=== PATIENT | female | born 1945 | race Caucasian/White ===

== ENCOUNTER 2016-12-23 15:33 | Emergency (ER) | payer OTHER ==
[~2016-12-23] VITALS: Ht 154.9 cm; Wt 37.6 kg
[2016-12-23 15:42] VITALS: BP 133/94; PULSE 100; RESP 20; TEMP 98.8; O2SAT 98
--- NOTE | 2016-12-23 15:52 | NUR ---
Pt placed to ER waiting room in stable condition.
[2016-12-23 16:21] LABS: BASOPHILS % (AUTO) 0.5 % (0.0-2.0); EOSINOPHILS # (AUTO) 0.1 K/uL (0.0-0.4); EOSINOPHILS % (AUTO) 1.1 % (0.0-4.0); HEMATOCRIT 39.3 % (36-48); HEMOGLOBIN 13.4 g/dL (12.0-16.0); LYMPHOCYTES # (AUTO) 2.2 K/uL (1.0-5.5); LYMPHOCYTES % (AUTO) 31.3 % (20.5-51.5); MEAN CORPUSCULAR HEMOGLOBIN 30 pg (27-31); MEAN CORPUSCULAR HGB CONC 34 % (32-36); MEAN CORPUSCULAR VOLUME 88 fL (79.0-98.0); MONOCYTES # (AUTO) 0.6 K/uL (0.0-1.0); MONOCYTES % (AUTO) 8.2 % (1.7-9.3); NEUTROPHILS % (AUTO) 58.9 % (40.0-70.0); PLATELET COUNT (AUTO) 310 K/uL (130-430); RED BLOOD CELL COUNT(AUTO) 4.46 MIL/uL (4.2-6.2); WHITE BLOOD COUNT (AUTO) 6.9 K/uL (4.8-10.8)
[2016-12-23 16:48] LABS: ANION GAP 8 (5-15); CALCIUM 9.4 mg/dL (8.4-11.0); CHLORIDE 106 mmol/L (98-107); GLUCOSE 89 mg/dL (70-99); POTASSIUM 4.2 mmol/L (3.5-5.1); SODIUM SERUM 141 mmol/L (136-145); UREA NITROGEN, BLOOD 13 mg/dL (8-21)
--- NOTE | 2016-12-23 17:37 | NUR ---
Pt placed to ER waiting room in stable condition. Urine specimen provided.
--- NOTE | 2016-12-23 17:45 | NUR ---
Pt brought by , A&Ox4, pt states she has Hx of stroke (weakness on R side of the body), today, pt c/o weakness on L side of her body, states she is also worry about her heart, pt states her blood pressure was low yesterday, BP normal at this time, cap refill <3, VSS, Per pt behavior and speech is between her normal . pt denies chest pain at this time.
--- NOTE | 2016-12-23 17:45 | NUR ---
Dr Eric notified to see patient as soon as possible since pt has weakness on L side of body since yesterday and c/o weakness on L arm since yesterday, pt has Hx of slurred speech, VSS at this time.
[2016-12-23 18:02] LABS: BILIRUBIN,URINE NEGATIVE (NEGATIVE); CLARITY/URINE CLEAR (CLEAR); COLOR,URINE YELLOW (YELLOW); GLUCOSE,URINE NEGATIVE (NEGATIVE); KETONES,URINE NEGATIVE (NEGATIVE); LEUKOCYTE ESTERASE ,URINE NEGATIVE (NEGATIVE); NITRITE, URINE NEGATIVE (NEGATIVE); PROTEIN URINE NEGATIVE (NEGATIVE); UROBILINOGEN,URINE 0.2 (0.2-1.0)
[2016-12-23 18:04] LABS: BLOOD, URINE TRACE (NEGATIVE)
--- NOTE | 2016-12-23 18:36 | NUR ---
Pt off the unit for CT
[2016-12-23 18:55] LABS: PROTHROMBIN TIME 10.5 SECS (9.5-12.5)
[2016-12-23 19:05] LABS: ALBUMIN 4.2 g/dL (3.4-4.8); BILIRUBIN,DIRECT 0.1 mg/dL (0.0-0.3); TOTAL BILIRUBIN 0.3 mg/dL (0.0-1.0); TOTAL PROTEIN, SERUM 7.9 g/dL (6.4-8.3)
[2016-12-23 19:16] LABS: BACTERIA,URINE RARE /HPF (None Seen); RBC,URINE 0-3 /HPF (0-3); WBC,URINE 0-3 /HPF (0-3)
[2016-12-23 19:17] LABS: MUCUS,URINE None Seen /LPF (None Seen)
[2016-12-23 19:41] LABS: CHOL/HDL RATIO 2.4 (>4.5)
[2016-12-23 19:49] LABS: CKMB RELATIVE INDEX 0.9 (0.0-2.9); CREATINE KINASE MB 2.1 ng/mL (0-3.6)
--- NOTE | 2016-12-23 20:01 | NUR ---
Pt resting at this time, VSS.
[2016-12-23 20:50] VITALS: BP 122/83; PULSE 80; RESP 18; TEMP 98.4; O2SAT 95
--- NOTE | 2016-12-23 20:50 | NUR ---
Patient given written and verbal discharge instructions and verbalizes understanding. ER MD discussed with patient the results and treatment Patient in stable condition. ID arm band removed. Patient educated on pain management and to follow up with PMD. Pain Scale 0/10. Opportunity for questions provided and answered.
== END 2016-12-23 20:50 | disposition home or self-care (01) ==
LOC: SED 15:33
DX: R53.1 Weakness (principal); G81.91 Hemiplegia, unspecified affecting right dominant side; R51 Headache; Z86.79 Personal history of other diseases of the circulatory system
CPT/HCPCS: 36415; 70450-TC; 71010; 80048; 80061; 80076; 81000-TC; 82550-TC; 82553-TC; 84484; 85025; 85610-TC; 85730-TC; 93005; 99285

== ENCOUNTER 2017-07-07 16:10 | Inpatient (IN) | payer OTHER ==
[~2017-07-07] VITALS: Ht 154.9 cm; Wt 36.7 kg
[2017-07-07 16:24] VITALS: BP_SYST 168
[2017-07-07 17:26] LABS: BLOOD, URINE 3+ (NEGATIVE); CLARITY/URINE CLOUDY (CLEAR); COLOR,URINE RED (YELLOW); GLUCOSE,URINE NEGATIVE (NEGATIVE); KETONES,URINE TRACE (NEGATIVE); LEUKOCYTE ESTERASE ,URINE 2+ (NEGATIVE); PROTEIN URINE 3+ (NEGATIVE)
[2017-07-07 17:29] LABS: BILIRUBIN,URINE NEGATIVE (NEGATIVE); NITRITE, URINE NEGATIVE (NEGATIVE)
[2017-07-07 17:34] LABS: BACTERIA,URINE FEW /HPF (None Seen); MUCUS,URINE None Seen /LPF (None Seen); RBC,URINE >100 /HPF (0-3); WBC,URINE 0-3 /HPF (0-3)
[2017-07-07] MEDS ORDERED: NACL 0.9% 1,000 ML IV ONE (17:37)
[2017-07-07] MEDS ORDERED: KETOROLAC TROMETHAMINE 30 MG VIAL IVP ONE (17:45)
[2017-07-07 18:03] LABS: BASOPHILS # (AUTO) 0.4 K/uL (0.0-0.2); BASOPHILS % (AUTO) 2.4 % (0.0-2.0); EOSINOPHILS % (AUTO) 0.2 % (0.0-4.0); HEMATOCRIT 40.9 % (36-48); HEMOGLOBIN 13.1 g/dL (12.0-16.0); LYMPHOCYTES # (AUTO) 2.1 K/uL (1.0-5.5); LYMPHOCYTES % (AUTO) 13.9 % (20.5-51.5); MEAN CORPUSCULAR HEMOGLOBIN 29 pg (27-31); MEAN CORPUSCULAR HGB CONC 32 % (32-36); MEAN CORPUSCULAR VOLUME 90 fL (79.0-98.0); MONOCYTES # (AUTO) 0.8 K/uL (0.0-1.0); MONOCYTES % (AUTO) 5.4 % (1.7-9.3); NEUTROPHILS # (AUTO) 11.5 K/uL (1.8-7.7); NEUTROPHILS % (AUTO) 78.1 % (40.0-70.0); RED BLOOD CELL COUNT(AUTO) 4.57 MIL/uL (4.2-6.2); RED CELL DISTRIBUTION WIDTH 15.3 % (9.0-15.0); WHITE BLOOD COUNT (AUTO) 14.8 K/uL (4.8-10.8)
[2017-07-07 18:18] LABS: ANION GAP 8 (5-15); CHLORIDE 102 mmol/L (98-107); CREATININE 0.84 mg/dL (0.55-1.30); GLUCOSE 100 mg/dL (70-99); POTASSIUM 4.8 mmol/L (3.5-5.1); SODIUM SERUM 134 mmol/L (136-145); UREA NITROGEN, BLOOD 15 mg/dL (8-21)
[2017-07-07 18:24] LABS: ALANINE AMINOTRANSFERASE 14 U/L (12-78); ALBUMIN 3.5 g/dL (3.4-4.8); ASPARTATE AMINOTRANSFERASE 28 U/L (10-37); LIPASE 111 U/L (73-393); TOTAL BILIRUBIN 0.4 mg/dL (0.0-1.0)
[2017-07-07 18:36] LABS: PLATELET COUNT (AUTO) 240 K/uL (130-430)
[2017-07-07] MEDS ORDERED: NACL 0.9% 1,000 ML IV SCH (19:26)
[2017-07-07] MEDS ORDERED: cefTRIAXone 1 GM IVPB PREMIX 50 ML IV ONE (19:30)
[2017-07-07] MEDS ORDERED: RANI50VI3 IJ (19:46)
[2017-07-07] MEDS ORDERED: ASPI325T2 PO (19:46)
[2017-07-07] MEDS ORDERED: SIMV80TA74 PO (19:46)
[2017-07-07] MEDS ORDERED: AMLO2.5T2 PO (19:46)
[2017-07-07] MEDS ORDERED: LEVO75TA7 PO (19:46)
[2017-07-07] MEDS ORDERED: D5/0.45 NS 1,000 ML IV SCH (20:00)
[2017-07-07 20:18] VITALS: BP_SYST 159
[2017-07-07] MEDS ORDERED: FLU VACC QS 2017-18(36MOS+)/PF 0.5 ML/SYR SYRINGE I.M. PRN (20:45)
[2017-07-08] VITALS (7 sets, daily range): BP systolic 113–169
[2017-07-08] MEDS ORDERED: ALBUTEROL SULFATE 0.083% 2.5 MG/3 ML VIAL.NEB INH PRN (00:15)
[2017-07-08] MEDS ORDERED: FAMOTIDINE PF 20 MG/2 ML VIAL IVP ONE (00:45)
[2017-07-08] MEDS: MORPHINE 2 MG/ML INJ. SYRINGE IVP PRN ×4 (00:59→21:07)
[2017-07-08] MEDS: D5NS 1,000 ML IV SCH ×2 (01:02→16:26)
[2017-07-08] MEDS: FAMOTIDINE PF 20 MG/2 ML VIAL IVP SCH ×2 (09:47→21:11)
[2017-07-08] MEDS: LEVOTHYROXINE SODIUM 0.1 MG VIAL IVP SCH (09:47)
[2017-07-08] MEDS: cefTRIAXone 1 GM IVPB PREMIX 50 ML IV SCH (21:10)
[2017-07-09 01:06] VITALS: BP_SYST 127
[2017-07-09 03:15] VITALS: BP_SYST 122
[2017-07-09 09:19] VITALS: BP_SYST 159
[2017-07-09] MEDS: D5NS 1,000 ML IV SCH (10:29)
[2017-07-09] MEDS: LEVOTHYROXINE SODIUM 0.1 MG VIAL IVP SCH (10:30)
[2017-07-09] MEDS: MORPHINE 2 MG/ML INJ. SYRINGE IVP PRN ×2 (10:38→22:22)
[2017-07-09] MEDS: FAMOTIDINE PF 20 MG/2 ML VIAL IVP SCH ×2 (10:45→22:11)
[2017-07-09 11:54] VITALS: BP_SYST 175
[2017-07-09 16:09] VITALS: BP_SYST 149
[2017-07-09] MEDS: cefTRIAXone 1 GM IVPB PREMIX 50 ML IV SCH (22:11)
[2017-07-10 00:22] VITALS: BP_SYST 144
[2017-07-10 05:33] VITALS: BP_SYST 119
[2017-07-10 08:46] VITALS: BP_SYST 164
[2017-07-10] MEDS: FAMOTIDINE PF 20 MG/2 ML VIAL IVP SCH ×2 (09:24→22:16)
[2017-07-10] MEDS: LEVOTHYROXINE SODIUM 0.1 MG VIAL IVP SCH (09:24)
[2017-07-10] MEDS: MORPHINE 2 MG/ML INJ. SYRINGE IVP PRN ×2 (09:25→22:29)
[2017-07-10 11:06] LABS: BASOPHILS % (AUTO) 0.4 % (0.0-2.0); EOSINOPHILS # (AUTO) 0.1 K/uL (0.0-0.4); EOSINOPHILS % (AUTO) 2.1 % (0.0-4.0); HEMATOCRIT 42.7 % (36-48); HEMOGLOBIN 13.5 g/dL (12.0-16.0); LYMPHOCYTES # (AUTO) 1.6 K/uL (1.0-5.5); LYMPHOCYTES % (AUTO) 27.4 % (20.5-51.5); MEAN CORPUSCULAR HEMOGLOBIN 28 pg (27-31); MEAN CORPUSCULAR HGB CONC 32 % (32-36); MEAN CORPUSCULAR VOLUME 90 fL (79.0-98.0); MONOCYTES # (AUTO) 0.8 K/uL (0.0-1.0); MONOCYTES % (AUTO) 13.5 % (1.7-9.3); NEUTROPHILS # (AUTO) 3.4 K/uL (1.8-7.7); NEUTROPHILS % (AUTO) 56.6 % (40.0-70.0); PLATELET COUNT (AUTO) 296 K/uL (130-430); RED BLOOD CELL COUNT(AUTO) 4.73 MIL/uL (4.2-6.2); WHITE BLOOD COUNT (AUTO) 5.9 K/uL (4.8-10.8)
[2017-07-10] MEDS: D5NS 1,000 ML IV SCH (12:28)
[2017-07-10 12:41] VITALS: BP_SYST 145
[2017-07-10 16:44] VITALS: BP_SYST 152
[2017-07-10] MEDS ORDERED: CALCIUM CARBONATE 500 MG/ TAB.CHEW PO ONE (18:00)
[2017-07-10] MEDS: cefTRIAXone 1 GM IVPB PREMIX 50 ML IV SCH (22:16)
[2017-07-10] MEDS ORDERED: amLODIPine BESYLATE 5 MG TABLET PO ONE (23:15)
[2017-07-11] MEDS: D5NS 1,000 ML IV SCH ×2 (04:46→11:33)
[2017-07-11 06:05] VITALS: BP_SYST 104
[2017-07-11 08:41] VITALS: BP_SYST 150
[2017-07-11] MEDS: FAMOTIDINE PF 20 MG/2 ML VIAL IVP SCH ×2 (09:49→21:39)
[2017-07-11] MEDS: LEVOTHYROXINE SODIUM 0.1 MG VIAL IVP SCH (09:50)
[2017-07-11 12:15] VITALS: BP_SYST 110
[2017-07-11] MEDS ORDERED: KETOROLAC TROMETHAMINE 30 MG VIAL IVP ONE (14:09)
[2017-07-11] MEDS ORDERED: fentaNYL CITRATE 250 MCG/5 ML AMP IV ONE (14:09)
[2017-07-11] MEDS ORDERED: MIDAZOLAM HCL 5 MG/ML VIAL (VERSED) IV ONE (14:09)
[2017-07-11] MEDS ORDERED: PROPOFOL 200MG/ 20ML VIAL (DIPRIVAN) IV ONE (14:09)
[2017-07-11] MEDS ORDERED: SEVOFLURANE 15 MIN GAS INH ONE (14:09)
[2017-07-11] MEDS ORDERED: DEXAMETHASONE SOD PHOSPHATE 4 MG/ML VIAL IVP ONE (14:09)
[2017-07-11] MEDS ORDERED: LR 1,000 ML IV.SOLN IV ONE (14:09)
[2017-07-11 17:05] VITALS: BP_SYST 156
[2017-07-11] MEDS ORDERED: IOHEXOL 50 ML IV ONE (17:58)
[2017-07-11] MEDS ORDERED: LR 1,000 ML IV ONE (18:37)
[2017-07-11] MEDS ORDERED: ONDANSETRON HCL 4 MG/2 ML VIAL IVP PRN ×2 (18:45)
[2017-07-11] MEDS ORDERED: NALBUPHINE HCL 10 MG/ML AMP IVP PRN (18:45)
[2017-07-11] MEDS ORDERED: DIPHENHYDRAMINE INJ 50 MG/ML VIAL IVP PRN (18:45)
[2017-07-11] MEDS ORDERED: KETOROLAC TROMETHAMINE 30 MG VIAL IM PRN (18:45)
[2017-07-11] MEDS ORDERED: ePHEDrine sulfate 50 MG/ML VIAL IVP PRN (18:45)
[2017-07-11] MEDS ORDERED: fentaNYL CITRATE/PF 100 MCG/2 ML AMP IVP PRN (18:45)
[2017-07-11] MEDS ORDERED: NALOXONE HCL 0.4 MG/ML AMP (NARCAN) IVP PRN (18:45)
[2017-07-11 20:00] VITALS: BP_SYST 144
[2017-07-11] MEDS: cefTRIAXone 1 GM IVPB PREMIX 50 ML IV SCH (21:39)
[2017-07-12 00:45] VITALS: BP_SYST 131
[2017-07-12] MEDS: D5NS 1,000 ML IV SCH (03:23)
[2017-07-12 03:51] VITALS: BP_SYST 105
[2017-07-12 09:03] VITALS: BP_SYST 158
[2017-07-12] MEDS: FAMOTIDINE PF 20 MG/2 ML VIAL IVP SCH (09:52)
[2017-07-12] MEDS: LEVOTHYROXINE SODIUM 0.1 MG VIAL IVP SCH (09:52)
[2017-07-12 11:04] LABS: BASOPHILS % (AUTO) 0.4 % (0.0-2.0); EOSINOPHILS % (AUTO) 0.1 % (0.0-4.0); HEMATOCRIT 37.1 % (36-48); HEMOGLOBIN 12.4 g/dL (12.0-16.0); LYMPHOCYTES % (AUTO) 21.3 % (20.5-51.5); MEAN CORPUSCULAR HEMOGLOBIN 29 pg (27-31); MEAN CORPUSCULAR HGB CONC 33 % (32-36); MEAN CORPUSCULAR VOLUME 89 fL (79.0-98.0); MONOCYTES # (AUTO) 1.1 K/uL (0.0-1.0); MONOCYTES % (AUTO) 11.5 % (1.7-9.3); NEUTROPHILS # (AUTO) 6.3 K/uL (1.8-7.7); NEUTROPHILS % (AUTO) 66.7 % (40.0-70.0); PLATELET COUNT (AUTO) 273 K/uL (130-430); RED CELL DISTRIBUTION WIDTH 15.3 % (9.0-15.0); WHITE BLOOD COUNT (AUTO) 9.4 K/uL (4.8-10.8)
[2017-07-12 11:23] LABS: ANION GAP 9 (5-15); CALCIUM 9.6 mg/dL (8.4-11.0); CHLORIDE 106 mmol/L (98-107); CREATININE 1.09 mg/dL (0.55-1.30); GLUCOSE 102 mg/dL (70-99); POTASSIUM 3.7 mmol/L (3.5-5.1); SODIUM SERUM 138 mmol/L (136-145); UREA NITROGEN, BLOOD 18 mg/dL (8-21)
[2017-07-12 11:24] VITALS: BP_SYST 146
[2017-07-12 11:28] LABS: ALANINE AMINOTRANSFERASE 15 U/L (12-78); ALBUMIN 3.1 g/dL (3.4-4.8); ASPARTATE AMINOTRANSFERASE 20 U/L (10-37); TOTAL BILIRUBIN 0.2 mg/dL (0.0-1.0)
[2017-07-12 13:42] VITALS: BP_SYST 146
== END 2017-07-12 14:10 | disposition home or self-care (01) | DRG 872 ==
LOC: SED 16:10 → STU 19:55 → SMU 20:10
PROVIDERS: ADMIT Internal Medicine Hospice and Palliative Medicine; ATTEND Internal Medicine Hospice and Palliative Medicine
PROC: 0T768DZ Dilation of Right Ureter with Intraluminal Device, Via Natural or Artificial Opening Endoscopic (ICD-10-PCS; 2017-07-11)
PROC: BT1D1ZZ Fluoroscopy of Right Kidney, Ureter and Bladder using Low Osmolar Contrast (ICD-10-PCS; principal; 2017-07-11 18:00)
DX: A41.9 Sepsis, unspecified organism (principal); E44.0 Moderate protein-calorie malnutrition; C79.89 Secondary malignant neoplasm of other specified sites; K56.7 Ileus, unspecified; N13.30 Unspecified hydronephrosis; N39.0 Urinary tract infection, site not specified; Z68.1 Body mass index [BMI] 19.9 or less, adult; B96.20 Unspecified Escherichia coli [E. coli] as the cause of diseases classified elsewhere; C76.2 Malignant neoplasm of abdomen; F17.200 Nicotine dependence, unspecified, uncomplicated; I10 Essential (primary) hypertension; K21.9 Gastro-esophageal reflux disease without esophagitis; N32.89 Other specified disorders of bladder; R19.00 Intra-abdominal and pelvic swelling, mass and lump, unspecified site; R31.9 Hematuria, unspecified; Z85.89 Personal history of malignant neoplasm of other organs and systems; Z86.73 Personal history of transient ischemic attack (TIA), and cerebral infarction without residual deficits
CPT/HCPCS: 36415; 71010; 76000; 78707; 80053; 81000-TC; 83605; 83690-TC; 85025; 87040-TC; 87086; 87186-TC; 93005; 94010; 94760; 96365; 96375; 99285; A9562; C1758; C1769; C2625; J0696; J1100; J1885; J2250; J2270; J2704; J3010; J3490; J7030; J7042; J7120; Q2037; Q9967